=== PATIENT | male | born 1975 | race Caucasian/White ===

== ENCOUNTER 2023-12-01 07:08 | Day surgery (SDC) | payer OTHER ==
[2023-11-29 15:02] VITALS: BMI 30.5
[2023-12-01] MEDS ORDERED: CEFAZOLIN 2 GM VIAL ONE (07:24)
[2023-12-01] MEDS ORDERED: Lidocaine 1% MPF 2 ML VIAL ONE (07:24)
[2023-12-01] MEDS ORDERED: Sodium Chloride 0.9% 100 ML ONE (07:24)
[2023-12-01] MEDS ORDERED: Ropivacaine 0.5% HCl/PF (150 MG/30 ML VIAL) ONE (08:29)
[2023-12-01] MEDS ORDERED: Ropivacaine 0.2% HCl/PF 20 ML ONE (08:29)
[2023-12-01] MEDS ORDERED: fentaNYL 50 mcg/mL 1 mL Vial ONE (08:29)
[2023-12-01] MEDS ORDERED: Midazolam HCl 2 mg/2 ml Vial ONE (08:29)
[2023-12-01] MEDS ORDERED: Ropivacaine 0.2% 550 ML 550 ML NERVE BLCK SCH (09:45)
[2023-12-01] MEDS ORDERED: HYDROcodone/Acetaminophen 5/325 mg Tablet PO PRN ×2 (09:45)
[2023-12-01] MEDS ORDERED: Zolpidem Tartrate 5 MG TAB PO PRN (09:45)
[2023-12-01] MEDS ORDERED: traMADol HCl 50 MG TAB PO PRN ×2 (09:45)
[2023-12-01] MEDS ORDERED: Promethazine HCl 25 MG/ML VIAL IM PRN ×2 (09:45→12:51)
[2023-12-01] MEDS ORDERED: Ondansetron PF 4 MG/2 ML Vial IVP PRN (09:45)
[2023-12-01] MEDS ORDERED: Lidocaine 1% (PF) 30 ML VIAL ONE (10:01)
[2023-12-01] MEDS ORDERED: fentaNYL PF 100 MCG/2 ML SYRINGE ONE (10:13)
[2023-12-01] MEDS ORDERED: Rocuronium Bromide 10 MG/ML (10ML VIAL) ONE (10:13)
[2023-12-01] MEDS ORDERED: Lidocaine 1% PF 5 ML VIAL ONE (10:13)
[2023-12-01] MEDS ORDERED: PROPOFOL 20 ML ONE ×2 (10:13→12:13)
[2023-12-01] MEDS ORDERED: Ondansetron PF 4 MG/2 ML Vial ONE (10:36)
[2023-12-01] MEDS ORDERED: Dexamethasone 20 MG/5 ML VIAL ONE (10:36)
[2023-12-01] MEDS ORDERED: Ketorolac Tromethamine 30 MG (1 mL) VIAL IVP SCH (12:00)
[2023-12-01] MEDS ORDERED: NEOSTIGMINE 3 MG/3 ML SYRINGE ONE (12:13)
[2023-12-01] MEDS ORDERED: Glycopyrrolate 0.2 MG/ML 5 ML SYRINGE ONE (12:13)
[2023-12-01] MEDS ORDERED: Ondansetron HCl/PF 4 MG/2 ML Vial IVP PRN (12:51)
[2023-12-01] MEDS ORDERED: HYDROcodone/Acetaminophen 5/325 mg Tablet ONE (13:35)
== END 2023-12-01 14:37 | disposition home or self-care (01) ==
LOC: SDC 07:08
PROVIDERS: ATTEND Orthopaedic Surgery
PROC: 0LS44ZZ Reposition Left Upper Arm Tendon, Percutaneous Endoscopic Approach (ICD-10-PCS; principal; 2023-12-01)
DX: S46.212A Strain of muscle, fascia and tendon of other parts of biceps, left arm, initial encounter (principal); Z98.890 Other specified postprocedural states; X50.0XXA Overexertion from strenuous movement or load, initial encounter; Y99.0 Civilian activity done for income or pay
CPT/HCPCS: A4306; A6223; C1713; J1100; J2001; J2250; J2405; J2704; J2795; J3010; J3490